=== PATIENT | male | born 1995 | race Caucasian/White ===

== ENCOUNTER 2017-04-17 19:40 | Emergency (ER) | payer BC ==
[2017-04-17 19:44] VITALS: BP 118/99; PULSE 102; RESP 18; TEMP 98.2; O2SAT 96
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
== END 2017-04-17 20:10 | disposition home or self-care (01) ==
PROC: 2W29X4Z Dressing of Left Upper Extremity using Bandage (ICD-10-PCS; principal; 2017-04-17)
DX: T22.212A Burn of second degree of left forearm, initial encounter (principal); T31.0 Burns involving less than 10% of body surface; X08.8XXA Exposure to other specified smoke, fire and flames, initial encounter; Y99.8 Other external cause status; Y93.89 Activity, other specified; F17.200 Nicotine dependence, unspecified, uncomplicated